=== PATIENT | female | born 1990 | race Two or more races ===

== ENCOUNTER 2018-02-01 11:43 | Emergency (ER) | payer SELFPAY ==
[~2018-02-01] VITALS: Ht 172.7 cm; Wt 79.4 kg
[2018-02-01 12:00] VITALS: BP 126/57
[2018-02-01] MEDS ORDERED: ACYCLOVIR 400 MG TAB PO ONE (13:30)
[2018-02-01] MEDS ORDERED: predniSONE 20 MG TAB PO ONE (13:30)
== END 2018-02-01 13:17 | disposition home or self-care (01) ==
LOC: ER 11:43
DX: G51.0 Bell's palsy (principal)
CPT/HCPCS: 70450; 81025